=== PATIENT | male | born 1975 | race Caucasian/White ===

== ENCOUNTER → 2019-10-01 | Outpatient (CLI) | payer OTHER ==
--- NOTE | 2019-10-01 08:13 | PFTRPT ---
Site: [facility], [address] [place] [address], [id number] ID: [id number] Name: DARIEN SPANN Visit Date: 10/01/2019 Second ID: [id number] Referring Doctor: Deepak Escalante MD Reviewing Doctor: Karlos Weinstein MD Home Comfort Advisor: Tracy JEAN RRT Age: 44 : 1975 Sex: Male Race: Height: 74.00 Inches Weight: 205.00 Lbs BSA: 2.20 Order IDs: [id number] Requested Test(s): <RESP-PFT.PFT B/A> Diagnosis: R918 test meet the ATS standards for acceptability and repeatability. Pt was given four puffs of albuterol for postbronchodilator. Review Status: Not Reviewed Pre-Bronch Post-Bronch Pred Actual %Pred Actual %Chng SPIROMETRY FVC (L) 5.83 5.54 95 5.51 FEV1 (L) 4.55 4.23 93 4.48 5 FEV1/FVC (%) 78 76 97 81 6 FEF 25% (L/sec) 8.27 6.92 83 8.40 21 FEF 50% (L/sec) 4.93 4.92 99 5.83 18 FEF 75% (L/sec) 1.84 1.42 77 1.86 30 FEF 25-75% (L/sec) 4.02 3.74 93 4.58 22 FEF Max (L/sec) 10.89 7.27 66 9.34 28 FIVC (L) 5.72 5.49 -4 FIF 50% (L/sec) 5.06 5.15 101 4.77 -7 FIF Max (L/sec) 5.18 5.20 MVV (L/min) 171 140 81 Expiratory Time (sec) 7.63 6.68 -12 Back Extrap Vol (L) 0.14 0.15 5 Time To FEFmax (sec) 0.115 0.095 -17 LUNG VOLUMES SVC (L) 5.57 5.42 97 IC (L) 3.76 3.39 90 ERV (L) 1.81 2.04 112 TGV (L) 4.00 4.47 111 RV (Pleth) (L) 2.19 2.43 111 TLC (Pleth) (L) 7.76 7.85 101 RV/TLC (Pleth) (%) 29 31 106 DIFFUSION DLCOunc (ml/min/mmHg) 33.14 27.52 83 DLCOcor (ml/min/mmHg) 33.14 29.01 87 DL/VA (ml/min/mmHg/L) 4.27 3.99 93 VA (L) 7.76 7.27 93 BHT (sec) 10.13 IVC (L) 5.32 TLC (SB) (L) 7.42 AIRWAYS RESISTANCE Raw (cmH2O/L/s) 1.45 0.80 54 Gaw (L/s/cmH2O) 1.03 1.26 122 sRaw (cmH2O*s) 4.76 3.63 76 sGaw (1/cmH2O*s) 0.20 0.28 138 BLOOD GASES Hgb (gm/dL) 12.9
== END ==
LOC: M CARPUL 07:36
PROVIDERS: ATTEND Family Medicine
DX: J44.9 Chronic obstructive pulmonary disease, unspecified (principal)

== ENCOUNTER → 2019-10-02 | Outpatient (CLI) | payer OTHER ==
--- NOTE | 2019-10-03 04:42 | REP ---
Clinical: COPD. Technique: Axial noncontrast images from the thoracic inlet to the upper abdomen with coronal and sagittal re-formations. Comparison: None. Findings: Bilateral lung cruz are well-aerated, symmetric, and clear. No consolidation, significant nodule or mass lesion. No significant emphysematous changes are appreciated. The tracheobronchial tree is patent. No effusion. No pneumothorax. No obvious adenopathy. Mediastinum demonstrates normal thoracic aorta, pulmonary vasculature and heart/pericardium. Limited upper abdomen demonstrates normal bilateral adrenal glands. Surrounding musculoskeletal structures are intact. Impression: Normal noncontrast chest CT. Electronically Signed by Dain Tomlinson MD 10/03/2019 04:33 A
== END ==
LOC: M RAD 08:05
PROVIDERS: ATTEND Family Medicine
DX: R91.8 Other nonspecific abnormal finding of lung field (principal); J44.9 Chronic obstructive pulmonary disease, unspecified